=== PATIENT | male | born 1990 | race Caucasian/White ===

== ENCOUNTER → 2016-07-23 | Outpatient (CLI) | payer OTHER ==
--- NOTE | 2016-07-23 14:15 | US ---
EXAMINATION TYPE: US abdomen limited DATE OF EXAM: 07/23/2016 1:57 PM COMPARISON: Complete abdominal ultrasound September 13, 2013. CLINICAL HISTORY: RUQ Pain R10.11, R19.7 Diarrhea. EXAM MEASUREMENTS: Liver Length: 11.4 cm Gallbladder Wall: 0.1 cm CBD: 0.4 cm Right Kidney: 11.4 x 4.4 x 6.0 cm TECHNOLOGIST IMPRESSION: no gross abnormality identified Pancreas: wnl Liver: wnl Gallbladder: No stones seen Evidence for sonographic Retana's sign: no CBD: wnl Right Kidney: No hydronephrosis or masses seen Visualized pancreas is unremarkable. Visualized liver shows no worrisome mass or ductal dilatation. G allbladder shows no shadowing mobile gallstones. No pericholecystic fluid collection or abnormal gall bladder wall thickening is seen. IMPRESSION: No gallstones or ultrasound evidence for acute cholecystitis.
== END | disposition home or self-care (01) ==
LOC: RADUSWWP 13:35
PROVIDERS: ATTEND Family Medicine
DX: R10.11 Right upper quadrant pain (principal); R19.7 Diarrhea, unspecified
CPT/HCPCS: 76705

== ENCOUNTER 2018-09-02 16:32 | Emergency (ER) | payer OTHER ==
[2018-09-02 16:38] VITALS: PULSE 60; TEMP 98.1
--- NOTE | 2018-09-02 18:52 | ED ---
General Adult HPI - General Chief complaint: Abdominal Pain Stated complaint: abdominal pain Time Seen by Provider: 09/02/18 18:29 Source: patient, RN notes reviewed, old records reviewed Mode of arrival: ambulatory Limitations: no limitations - History of Present Illness Initial comments: 27-year-old male patient past medical history of asthma, IBS presents to ED with right upper quadrant abdominal pain. Patient reports that he has had waxing and waning pain in his right upper quadrant for approximately 2 years. Patient reports that approximately one week he has had worsening pain in his right upper quadrant. Patient states that the pain comes and goes through the day. Patient denies any association with food. Patient denies that he hasn't some nausea without emesis. Patient denies any other complaints today. Systemic: Pt denies fatigue, myalgia, fever/chills, rash. Pt denies weakness, night sweats, weight loss. Neuro: Pt denies headache, visual disturbances, syncope or pre-syncope. HEENT: Pt denies ocular discharge or irritation, otalgia, rhinorrhea, pharyngitis or notable lymphadenopathy. Cardiopulmonary: Pt denies chest pain, SOB, heart palpitations, dyspnea on exertion. Abdominal/GI: Pt denies v/d. : Pt denies dysuria, burning w/ urination, frequency/urgency. Denies new onset urinary or bowel incontinence. MSK: Pt denies myalgia, loss of strength or function in extremities. Neuro: Pt denies new onset weakness, paresthesias. - Related Data Home Medications Medication Instructions Recorded Confirmed Albuterol Inhaler [Ventolin Hfa 1 - 2 puff INHALATION RT-Q4H PRN 09/28/13 09/02/18 Inhaler] Beclomethasone Dipropionate [Qvar 1 puff INHALATION RT-BID 11/27/14 09/02/18 40 mcg/puff] Allergies Allergy/AdvReac Type Severity Reaction Status Date / Time amitriptyline AdvReac Hallucinati Verified 09/02/18 19:08 ons Review of Systems ROS Statement: Those systems with pertinent positive or pertinent negative responses have been documented in the HPI. ROS Other: All systems not noted in ROS Statement are negative. Past Medical History Past Medical History: Asthma Additional Past Medical History / Comment(s): IBS, brachial plexitis, pneumothorax at , pneumothorax 11/27/14 with chest tube placement, right pneumothorax 11/30/14 with chest tube placement History of Any Multi-Drug Resistant Organisms: None Reported Past Surgical History: Ear Surgery Additional Past Surgical History / Comment(s): ear tubes, chest tube 11/27/14, colonoscopy Past Anesthesia/Blood Transfusion Reactions: No Reported Reaction Past Psychological History: ADD/ADHD, Anxiety, Depression Smoking Status: Former smoker Past Alcohol Use History: Occasional Past Drug Use History: Marijuana - Past Family History Father Family Medical History: CVA/TIA, Diabetes Mellitus, Hyperlipidemia, Hypertension General Exam - General Exam Comments Initial Comments: Constitutional: NAD, AOX3, Pt has pleasant affect. HEENT: NC/AT, trachea midline, neck supple, no lymphadenopathy. Posterior pharynx non erythematous, without exudates. External ears appear normal, without discharge. Mucous membranes moist. Eyes PERRLA, EOM intact. There is no scleral icterus. No pallor noted. Cardiopulmonary: RRR, no murmurs, rubs or gallops, no JVD noted. Lungs CTAB in anterior and posterior landis. No peripheral edema. Abdominal exam: Abdomen soft and non-distended. Abdomen mildly tender to palpation right upper quadrant. Retana sign negative. No other areas of abdominal tenderness. No guarding or rigidity. Bowel sounds active in LLQ. No hepatosplenomegaly. No ecchymosis Neuro: CN II-XII grossly intact. No nuchal rigidity. MSK: No posterior calf tenderness bilaterally, homans sign negative bilaterally. Posterior tibialis and radial pulse +2 bilaterally. Sensation intact in upper and lower extremities. Full active ROM in upper and lower extremities, 5/5 stregnth. Limitations: no limitations Course Vital Signs 09/02/18 16:35 Temperature 98.1 F Pulse Rate 60 Respiratory 20 Rate Blood Pressure 129/78 O2 Sat by Pulse 99 Oximetry Medical Decision Making - Medical Decision Making 27-year-old male patient past medical history of asthma, IBS presents to ED with right upper quadrant abdominal pain. Patient reports that he has had waxing and waning pain in his right upper quadrant for approximately 2 years. Patient reports that approximately one week he has had worsening pain in his right upper quadrant. Patient states that the pain comes and goes through the day. Patient denies any association with food. Patient denies that he hasn't some nausea without emesis. Patient denies any other complaints today. Pt VSS, afebrile. Physical exam displayed: Abdomen soft and non-distended. Abdomen mildly tender to palpation right upper quadrant. Retana sign negative. No other areas of abdominal tenderness. No guarding or rigidity. Bowel sounds active in LLQ. No hepatosplenomegaly. No ecchymosis. Laboratory investigations revealed non- impressive CBC, CMP. Lipase within normal limits. Ultrasound displayed no signs for cholecystitis. Patient discharged. Patient follow up with primary care provider at scheduled appointment. Patient given Gen. surgery consult. Further evaluation of possible biliary colic. Patient will return to ER physician's worse in any way. Case discussed with Dr. James. - Lab Data Result diagrams: 09/02/18 19:00 09/02/18 19:00 Lab Results 09/02/18 09/02/18 Range/Units 19:00 19:00 WBC 8.1 (3.8-10.6) k/uL RBC 4.42 (4.30-5.90) m/uL Hgb 14.3 (13.0-17.5) gm/dL Hct 41.8 (39.0-53.0) % MCV 94.7 (80.0-100.0) fL MCH 32.3 (25.0-35.0) pg MCHC 34.1 (31.0-37.0) g/dL RDW 12.1 (11.5-15.5) % Plt Count 190 (150-450) k/uL Neutrophils % 75 % Lymphocytes % 18 % Monocytes % 4 % Eosinophils % 0 % Basophils % 0 % Neutrophils # 6.1 (1.3-7.7) k/uL Lymphocytes # 1.5 (1.0-4.8) k/uL Monocytes # 0.3 (0-1.0) k/uL Eosinophils # 0.0 (0-0.7) k/uL Basophils # 0.0 (0-0.2) k/uL Sodium 139 (137-145) mmol/L Potassium 4.2 (3.5-5.1) mmol/L Chloride 106 (98-107) mmol/L Carbon Dioxide 25 (22-30) mmol/L Anion Gap 8 mmol/L BUN 11 (9-20) mg/dL Creatinine 0.68 (0.66-1.25) mg/dL Est GFR (CKD-EPI)AfAm >90 (>60 ml/min/1.73 sqM) Est GFR (CKD-EPI)NonAf >90 (>60 ml/min/1.73 sqM) Glucose 93 (74-99) mg/dL Calcium 9.9 (8.4-10.2) mg/dL Total Bilirubin 0.6 (0.2-1.3) mg/dL AST 20 (17-59) U/L ALT 27 (21-72) U/L Alkaline Phosphatase 58 (38-126) U/L Total Protein 7.5 (6.3-8.2) g/dL Albumin 4.9 (3.5-5.0) g/dL Lipase 31 (23-300) U/L Disposition Clinical Impression: Abdominal pain Disposition: HOME SELF-CARE Condition: Stable Instructions (If sedation given, give patient instructions): Abdominal Pain (ED) Additional Instructions: Patient to adhere to previously discussed treatment plan and will take medication(s) as directed. Patient to follow up with PCP in 1-2 days. Patient to return to ED if symptoms do not improve. Follow-up with primary care provider and surgical consult 1-2 days. Return to ER if condition worsens in any way. Is patient prescribed a controlled substance at d/c from ED?: No Referrals: Dm Edmonds MD [Primary Care Provider] - 1-2 days Tamera Santa MD [STAFF PHYSICIAN] - 1-2 days
[2018-09-02 19:16] LABS: Basophils % (A) 0 %; Eosinophils % (A) 0 %; HCT 41.8 % (39.0-53.0); HGB 14.3 gm/dL (13.0-17.5); Lymphocytes # (A) 1.5 k/uL (1.0-4.8); Lymphocytes % (A) 18 %; MCH 32.3 pg (25.0-35.0); MCHC 34.1 g/dL (31.0-37.0); MCV 94.7 fL (80.0-100.0); Mean Platelet Volume 7.4; Monocytes # (A) 0.3 k/uL (0-1.0); Monocytes % (A) 4 %; Neutrophils # (A) 6.1 k/uL (1.3-7.7); Neutrophils % (A) 75 %; Platelet Count 190 k/uL (150-450); RBC 4.42 m/uL (4.30-5.90); RDW 12.1 % (11.5-15.5); WBC 8.1 k/uL (3.8-10.6)
[2018-09-02 19:25] LABS: ALT 27 U/L (21-72); AST 20 U/L (17-59); Albumin 4.9 g/dL (3.5-5.0); Alkaline Phosphatase 58 U/L (38-126); Anion Gap 8 mmol/L; Blood Urea Nitrogen 11 mg/dL (9-20); Calcium 9.9 mg/dL (8.4-10.2); Carbon Dioxide 25 mmol/L (22-30); Chloride 106 mmol/L (98-107); Glucose 93 mg/dL (74-99); Lipase 31 U/L (23-300); Potassium 4.2 mmol/L (3.5-5.1); Sodium 139 mmol/L (137-145); Total Bilirubin 0.6 mg/dL (0.2-1.3); Total Protein 7.5 g/dL (6.3-8.2)
--- NOTE | 2018-09-02 19:40 | US ---
EXAMINATION TYPE: US gallbladder DATE OF EXAM: 09/02/2018 COMPARISON: US CLINICAL HISTORY: Pain. Pt states right side ABD pain and diarrhea EXAM MEASUREMENTS: Liver Length: 14.2 cm Gallbladder Wall: 0.2 cm CBD: 0.3 cm Right Kidney: 10.3 x 3.5 x 5.2 cm Pancreas: wnl Liver: Possible small hemangioma right posterior lobe= 1.3 x 0.8 x 0.8 cm/ Otherwise appeared wnl Gallbladder: wnl Evidence for sonographic Retana's sign: No CBD: wnl Right Kidney: wnl No abnormality visualized to account for pt's symptoms IMPRESSION: No gallstones or dilated ducts. Negative exam. Possible tiny hemangioma posterior right l obe of the liver.
[2018-09-02 20:36] VITALS: BP 134/80; RESP 16
== END 2018-09-02 20:40 | disposition home or self-care (01) ==
LOC: EC 16:32
DX: R10.11 Right upper quadrant pain (principal); J45.909 Unspecified asthma, uncomplicated; Z87.891 Personal history of nicotine dependence; Z79.51 Long term (current) use of inhaled steroids; Z88.8 Allergy status to other drugs, medicaments and biological substances
CPT/HCPCS: 36415; 76705; 80053; 83690; 85025; 99284